=== PATIENT | female | born 1975 | race Caucasian/White ===

== ENCOUNTER 2019-01-16 06:41 | Day surgery (SDC) | payer OTHER ==
[2019-01-15 09:13] VITALS: BMI 25.8
[2019-01-16] MEDS ORDERED: LIDOCAINE 1%-EPI 1:100,000 30 ML MDV IJ ONE (08:46)
[2019-01-16] MEDS ORDERED: ONDANSETRON 4 MG/2 ML VIAL IVPUSH PRN (09:10)
--- NOTE | 2019-01-16 09:23 | HP ---
History & Physical Update - History History: No Change - Physical Physical: No Change - Assessment Assessment: No Change - Plan Plan: No Change (Initial H&P from both Medical doctor and Dr. Preciado (Surgeon) are both complete and accurate. Up to date. No new medications or complaints.)
[2019-01-16] MEDS ORDERED: SUCCINYLCHOLINE CHLORIDE 200 MG/10 ML SYRINGE ONE (09:32)
[2019-01-16] MEDS ORDERED: MINERAL OIL/PETROLATUM,WHITE 3.5 GM TUBE ONE (09:53)
[2019-01-16] MEDS ORDERED: DEXAMETHASONE SOD PHOSPHATE 4 MG/1 ML VIAL ONE (09:53)
[2019-01-16] MEDS ORDERED: CLINDAMYCIN PHOSPHATE 600 MG/4 ML VIAL ONE (10:12)
[2019-01-16] MEDS ORDERED: BUPIVACAINE HCL/PF 0.5% (5 MG/ML) 30 ML VIAL IJ ONE ×2 (10:12→10:27)
[2019-01-16] MEDS ORDERED: CLINDAMYCIN PHOSPHATE 600 MG/4 ML VIAL IVPB ONE (10:15)
[2019-01-16] MEDS ORDERED: LIDOCAINE 1%/EPI 1:100000 (20 ML MULTI DOSE VIAL) IJ ONE (10:27)
[2019-01-16] MEDS ORDERED: PROPOFOL 20 ML ONE ×10 (10:34→11:52)
[2019-01-16] MEDS ORDERED: HYDROmorphone HCl 2 MG/ML VIAL ONE (11:07)
[2019-01-16] MEDS ORDERED: THROMBIN (BOVINE) 5,000 UNIT VIAL TP ONE (12:05)
--- NOTE | 2019-01-16 13:42 | OP ---
DATE OF OPERATION: 01/16/2019 SURGICAL ATTENDING: Dino Oneill MD CUSTODIAN MANAGER: NICOLE Loera PREOPERATIVE DIAGNOSIS: Right deep lobe parotid tumor. POSTOPERATIVE DIAGNOSIS: Right deep lobe parotid tumor. ANESTHESIA: General endotracheal. PROCEDURE: Right deep lobe parotid excision with facial nerve dissection. DESCRIPTION OF PROCEDURE: The patient was taken into the operating room, placed in a supine position, endotracheally intubated. Neck ultrasound was performed showing normal parotid tissue. The mass was too deep to be visualized. No suspicious adenopathy was seen. The neck was then prepped and draped in the usual sterile fashion. Nerve monitoring devices were placed on the patient as well. Local anesthesia was administered. A sickle-shaped incision was made starting anterior to the right tragus, underneath the earlobe, back to the hairline, and onto an anterior skin crease. This was carried down through subcutaneous tissues and platysma. Subplatysmal flaps were raised superiorly and anteriorly, and flap hooks were placed for exposure. The greater auricular nerve was identified, and its posterior branches were preserved. The external jugular vein was also observed. The anterior border of the sternocleidomastoid muscle was dissected. The digastric muscle was also dissected. The mastoid process and the ear canal were palpated, and the facial nerve main trunk was identified emanating from the tympanomastoid groove. It was dissected anteriorly, and the bifurcation was identified as well as the takeoff of the marginal mandibular branch of the facial nerve. These were all preserved intact, and facial nerve monitoring was utilized. The deep level of the parotid was identified, retracted medially and anteriorly. Dissection continued posterior to the deep lobe until the deep lobe parotid tumor was identified. This was dissected free from surrounding tissues. Its stalk connecting it to the deep lobe of the parotid tumor was transected. In this way it was removed, inspected, and taken to pathology where it was oriented for the pathologist. Hemostasis was achieved with electrocautery, a suture, Gelfoam, and thrombin. Valsalva maneuver was performed showing adequate hemostasis. The wound was then closed in 3 layers. A Hemovac drain was placed and sutured to the skin. The patient was then extubated, awakened, and taken to recovery in stable condition. Dr. Oneill, the attending surgeon, was present throughout the entire procedure. DINO ONEILL M.D. [id number]
--- NOTE | 2019-01-16 13:53 | SURG ---
Surgery Muck Miner Note Muck Miner: Will Chen PA-C Date of Service: 01/16/19 Diagnosis: Right deep lobe parotid tumor Procedure: Right deep lobe parotid excision with facial nerve dissection I was present for the entirety of the operative procedure. For further detail, please refer to operative report. Visit type - Case Type Case Type: Scheduled - New patient This patient is new to me today: Yes Date on this admission: 01/16/19
[2019-01-16] MEDS ORDERED: ZOLMITRIPTAN 5 MG PO PRN (15:29)
[2019-01-16] MEDS ORDERED: PATIENT'S OWN MEDICATION (NON-FORMULARY) (Famotidine [Pepcid] 40 MG) PO PRN (15:29)
[2019-01-16] MEDS ORDERED: PATIENT'S OWN MEDICATION (NON-FORMULARY) (Tizanidine Hcl 2 MG) PO PRN (15:29)
[2019-01-16] MEDS ORDERED: ACETAMINOPHEN INJECTION 100 ML IVPB ONE (15:51)
[2019-01-16] MEDS: ACETAMINOPHEN 1000 MG/100 ML VIAL (NON FORMULARY) IVPB ONE ×2 (16:00→18:23)
[2019-01-16] MEDS: LACTATED RINGERS SOLUTION 1,000 ML IV SCH (17:00)
[2019-01-16] MEDS: oxyCODONE HCL 5 MG TABLET PO PRN (20:41)
[2019-01-17] MEDS: ACETAMINOPHEN 325 MG TABLET (FP) PO PRN ×4 (00:41→16:03)
[2019-01-17] MEDS: oxyCODONE HCL 5 MG TABLET PO PRN ×4 (00:41→16:03)
[2019-01-17] MEDS: LACTATED RINGERS SOLUTION 1,000 ML IV SCH (07:59)
[2019-01-17] MEDS ORDERED: MULTIVITAMINS (DAILY MVI) TABLET (FP) PO SCH (10:00)
[2019-01-17 17:08] VITALS: BP 130/70; PULSE 75; TEMP 98
--- NOTE | 2019-01-17 17:49 | PN ---
Progress Note (short form) - Note Progress Note: POD1 right deep lobe parotidectomy with facial nerve dissection. Reports pain in the area of the wound, parapharyngeal extending into the head. Able to speak and swallow. In no distress. Wound is clean, dry and intact. Drain is serous and minimal. Facial nerve function intact except that right lower lip is weak. Oral cavity/oropharynx are normal. I am pleased with her progress. My impression is that there is no infection or hematoma. I have recommended and prescribed continued oxycodone/percocet as needed. She would like to be discharged home which is appropriate. I have instructed her to call me with any further issues and to make an appointment to see me .
--- NOTE | 2019-01-21 18:56 | PATH ---
Surgical Pathology Report Patient Name: BANDAR NOLEN [facility]. Rec. #: [id number] /Age/Gender: 1975 (Age: 43) / F Account: [id number] Location: AMBULATORY SURG Taken: 01/16/2019 Received: 01/16/2019 Reported: 01/21/2019 Physicians: Jun Preciado M.D. 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 TUMOR FOCALLY PRESENT AT THE LATERAL MARGIN. REMAINING MARGINS ARE NEGATIVE FOR TUMOR. POSTERIOR AND ANTERIOR MARGINS ARE NARROWLY EXCISED. Electronically Signed Ernestine Landeros M.D. Gross Description Received fresh labeled "right deep parotid tumor," is a 2.5 x 2.3 x 2.0 cm ayala-red soft tissue mass. The specimen is inked as follows: Anterior yellow; posterior black; medial green; lateral and inferior blue; superior red. The specimen is serially sectioned from medial to lateral. Sectioning reveals ayala-white, lobulated, centrally degenerative parenchyma. The specimen is entirely and sequentially submitted in 5 cassettes with the medial margin in cassette 1 and the lateral margin in cassette 5. DL/01/16/2019 saudi01/16/2019
== END 2019-01-17 18:50 | disposition home or self-care (01) ==
LOC: JASU-SURG 06:41 → JASUSAT 06:41 → J6S 17:34 → JASUSAT 01-17 18:50
PROVIDERS: ATTEND Surgery
PROC: 00BM0ZZ Excision of Facial Nerve, Open Approach (ICD-10-PCS; 2019-01-16)
PROC: 0CTB0ZZ Resection of Right Parotid Duct, Open Approach (ICD-10-PCS; principal; 2019-01-16 09:00)
DX: D11.0 Benign neoplasm of parotid gland (principal)
CPT/HCPCS: 84703; 94760; J0131